=== PATIENT | female | born 1970 | race Caucasian/White ===

== ENCOUNTER → 2016-07-24 09:11 | Outpatient (CLI) | payer MEDICAID ==
[2011-09-28 12:51] VITALS: BMI 17.9
== END | disposition home or self-care (01) ==
LOC: D.RAD 09:11
DX: R13.10 Dysphagia, unspecified (principal)

== ENCOUNTER 2016-11-26 19:28 | Emergency (ER) | payer MEDICAID ==
[2011-09-28 12:51] VITALS: BMI 17.9
[2016-11-26 19:56] LABS: BASOPHILS 0.5 % (0-2); EOSINOPHILS 6.5 % (0-7); HEMATOCRIT 38.5 % (36.0-48.0); HEMOGLOBIN 13.3 g/dL (12-16); IMMATURE GRANULOCYTES 0.2 % (0-5); LYMPHOCYTES 37.9 % (15-50); MCH 30.5 pg (26.0-34.0); MCHC 34.5 g/dL (31.0-37.0); MCV 88.3 fL (80.0-100.0); MEAN PLATELET VOLUME 9.4 fL (7.4-10.4); MONOCYTES 8.2 % (2-11); NEUTROPHILS 46.7 % (40-80); RBC 4.36 10x6/uL (4.00-5.40); RDW 13.5 % (11.5-14.5); WBC 6.3 10x3/uL (4.8-10.8)
[2016-11-26 20:04] LABS: PLATELET COUNT 226 10x3/uL (130-400)
[2016-11-26 20:21] LABS: ALBUMIN 3.6 g/dL (3.4-5.0); ALKALINE PHOSPHATASE 73 U/L (46-116); ALT (SGPT) 20 U/L (10-68); BILIRUBIN - TOTAL 0.16 mg/dL (0.2-1.3); CALC OSMOLALITY 284 mosm/kg (275-300); CALCIUM 8.7 mg/dL (8.5-10.1); CHLORIDE - SERUM 110 mmol/L (98-107); CREATININE - SERUM 1.1 mg/dL (0.6-1.3); GLUCOSE 108 mg/dL (74-106); POTASSIUM - SERUM 3.6 mmol/L (3.5-5.1); PROTEIN - SERUM 6.9 g/dL (6.4-8.2); SODIUM 143 mmol/L (136-145); UREA NITROGEN 9 mg/dL (7-18); eGFR NON AFRICAN AMERICAN 56 mL/min (90-120)
[2016-11-26 20:32] LABS: CKMB 0.4 U/L (0.0-3.6); CREATINE KINASE 80 UL (21-215)
[2016-11-26 20:33] LABS: TROPONIN-I < 0.017 ng/mL (0.000-0.060)
== END 2016-11-26 20:50 | disposition left against medical advice (07) ==
LOC: D.ER 19:28
PROVIDERS: Emergency Medicine
DX: R07.9 Chest pain, unspecified (principal)

== ENCOUNTER → 2017-06-18 09:47 | Outpatient (CLI) | payer MEDICAID ==
[2011-09-28 12:51] VITALS: BMI 17.9
== END | disposition home or self-care (01) ==
LOC: D.MRI 06-07 14:00
DX: M25.562 Pain in left knee (principal)

== ENCOUNTER 2017-08-27 08:33 | Day surgery (SDC) | payer MEDICAID ==
[~2017-08-27] VITALS: Ht 162.6 cm; Wt 47.6 kg
--- NOTE | ~2017-08-27 | OP ---
PATIENT NAME: JAMA IRVING MEDICAL RECORD: [id number] :68 LOCATION:D.OPS ADMISSION DATE: SURGEON: YONIS DOMINGUEZ, KRISTIAN REYES DATE OF OPERATION: 08/27/2017 PREOPERATIVE DIAGNOSES: 1. Medial collateral ligament tear. 2. Large medial femoral condyle contusion. 3. Lipoma. POSTOPERATIVE DIAGNOSES: 1. Medial meniscus tear of the right knee. 2. Large medial femoral condyle contusion. 3. Lipoma. PROCEDURES: 1. Right knee arthroscopy with arthroscopic partial medial meniscectomy. 2. Fluoroscopically guided BioPlasty with stem cells and StimuBlast. 3. Stem cell harvest. SURGEON: Kristian Somers MD ANESTHESIA: General. INTRAOPERATIVE COMPLICATIONS: None. SUMMARY OF PATHOLOGIC FINDINGS: Given the fact that the patient needed StimuBlast, I felt like this was not the appropriate time to remove the lipoma with the prolonged tourniquet time for the StimuBlast. The MCL was no more at this point of the examination than a grade I-II strain and I did not feel like it needed to be fixed as it improved dramatically since the index examination. The MRI, however, did show a very large area of the medial femoral condylar contusion. The decision was made to treat this with StimuBlast. The meniscal tear was found incidentally at the time of arthroscopy. OPERATIVE SUMMARY IN DETAIL: After obtaining the appropriate preoperative orthopedic surgery consent as well as anesthetic consultation, evaluation and clearance, the patient was brought to the operating room and placed on the operating table in the supine position. After adequate general laryngeal mask airway was administered, tourniquet was placed about the proximal aspect of the left lower extremity. Left lower extremity was prepped and draped in routine sterile fashion. Leg was elevated and exsanguinated, and tourniquet was inflated to 350 mmHg. Please note the same time the leg was prepped and draped out, the anterior-superior iliac crest area was also prepped out. Diagnostic arthroscopy did reveal the patient to have 1 small area of condylar defect, punctate at best, 1 mm x 1 mm, noncommunicative. The patient also had a complex tear of the posterior horn of the medial meniscus. Combination of a fiber resector and a meniscotome was utilized to debride the meniscus back to stable meniscal elements with good residual posterior horn remaining. Having completed this, attention was then turned to the BioPlasty of the medial femoral condyle. A 60 cc of bone marrow aspirate was harvested quite easily from the anterior-superior iliac crest using the Arthrex Preet system. A very small incision was made. The trocar was tapped gently into the bone marrow and technique was used to harvest the 60 cc of bone marrow aspirate. This was then taken to the Preet machine for concentration. Small Steri-Strip was placed over OPERATIVE REPORT [id number] JAMA IRVING this very small stab incision. At this point, after concentration of the stem cells, approximately 1/2 of the 5 cc of the StimuBlast was mixed with approximately 2 cc of the aspirate. They totaled 3 cc in concentrate. This made a very good paste. Under direct fluoroscopic AP and lateral planes, the guide pin for the 7-mm decompression low profile reamer was placed and then the area in question was gently decompressed. Having completed this, the same guide pin was used to feed the cannula over. The delivery cannula over the guide pin was then removed. The stem cell BioPlasty mixture paste was then gently delivered into the medial aspect of the medial femoral condyle under direct fluoroscopic view. Having completed this, a small Steri-Strip was again placed over this stab incision. Lastly, the residual 1 cc of concentrated stem cells was mixed with approximately 5 cc of platelet poor plasma and delivered into the knee itself. Having completed this, arthroscopy portals were closed in a routine interrupted fashion using 4-0 Prolene. At this point, I made the decision to not proceed with the lipoma excision for various reasons; one of which was not to go long on the tourniquet and another was which to not cause more trauma to this knee that is in critical need of biological healing. Sterile dressings were applied. Tourniquet was deflated. The patient was awakened and taken to the recovery room in stable condition. All final needle and sponge counts were correct. TRANSINT:[id number] Voice Confirmation ID: [id number] DOCUMENT ID: [id number] KRISTIAN SOMERS MD at 8108 CC: [id number] DICTATION DATE: 08/27/17 1406 STENCIL INSPECTOR: 08/27/17 1824 [facility] 08/27/17 [facility] [address] [place] [address]
[2017-08-27] MEDS ORDERED: MELATONIN 3 MG1 TAB PO (09:21)
[2017-08-27 09:38] VITALS: BP 119/85; Ht 162.6 cm; Wt 47.6 kg
[2017-08-27 09:54] LABS: HEMATOCRIT 41.2 % (36.0-48.0); HEMOGLOBIN 14.3 g/dL (12-16); MCH 30.4 pg (26.0-34.0); MCHC 34.7 g/dL (31.0-37.0); MCV 87.5 fL (80.0-100.0); MEAN PLATELET VOLUME 9.7 fL (7.4-10.4); RBC 4.71 10x6/uL (4.00-5.40); RDW 12.7 % (11.5-14.5); WBC 7.8 10x3/uL (4.8-10.8)
[2017-08-27] MEDS ORDERED: HYDROCODONE-APA1 TAB PO (13:24)
== END 2017-08-27 15:30 | disposition home or self-care (01) ==
LOC: D.OPS 08:33 → D.PAN 13:40 → D.OPS 15:00 → D.PAN 15:00 → D.OPS 15:30
PROVIDERS: Anesthesiology
DX: S83.232A Complex tear of medial meniscus, current injury, left knee, initial encounter (principal); S70.12XA Contusion of left thigh, initial encounter; S83.412A Sprain of medial collateral ligament of left knee, initial encounter; X58.XXXA Exposure to other specified factors, initial encounter; D17.9 Benign lipomatous neoplasm, unspecified; Z01.812 Encounter for preprocedural laboratory examination
CPT/HCPCS: 29881; 0232T

== ENCOUNTER 2018-11-18 14:21 | Observation (INO) | payer MEDICAID ==
[2018-11-18] VITALS (9 sets, daily range): BP systolic 100–148; BP diastolic 55–88; BMI 23.2
[~2018-11-18 14:21] MED LIST: HYDROCODONE-APA1 TAB PO; MELATONIN 3 MG1 TAB PO
[2018-11-18] MEDS ORDERED: ZYPREXA20 MG PO ×2 (14:27→23:14)
[2018-11-18] MEDS ORDERED: CELEXA20 MG (14:27)
[2018-11-18] MEDS ORDERED: TRAZODONE HCL150 MG PO (14:27)
[2018-11-18] MEDS ORDERED: BUSPAR10 MG (14:28)
[2018-11-18] MEDS ORDERED: PROPRANOLOL HCL20 MG (14:28)
[2018-11-18] MEDS ORDERED: CARBATROL 200200 MG (14:29)
--- NOTE | 2018-11-18 14:35 | NUR ---
10/10 CHEST PAIN THAT RADIATES TO LEFT SIDE OF JAW, PT REPORTS. SPRAY NITRO X1 AND 324MG ASA BROOMCORN GRADER ED.
--- NOTE | 2018-11-18 14:40 | NUR ---
SL NITRO GIVEN AT 1435, BP AT 1440 103/55 PT STATES PAIN 9/10. EDP IN ROOM, IS AWARE AND ORDERED NOT TO GIVE ANOTHER NITRO.
[2018-11-18 15:00] LABS: BASOPHILS 0.1 % (0-2); EOSINOPHILS 7.2 % (0-7); HEMATOCRIT 36.7 % (36.0-48.0); HEMOGLOBIN 12.9 g/dL (12-16); IMMATURE GRANULOCYTES 0.1 % (0-5); LYMPHOCYTES 34.4 % (15-50); MCH 30.4 pg (26.0-34.0); MCHC 35.1 g/dL (31.0-37.0); MCV 86.6 fL (80.0-100.0); MEAN PLATELET VOLUME 9.4 fL (7.4-10.4); MONOCYTES 11.2 % (2-11); PLATELET COUNT 300 10x3/uL (130-400); RBC 4.24 10x6/uL (4.00-5.40); RDW 12.9 % (11.5-14.5); WBC 6.7 10x3/uL (4.8-10.8)
[2018-11-18 15:13] LABS: APTT 32.2 SECONDS (22.8-39.4); INR 1.13 (0.85-1.17)
[2018-11-18 15:15] LABS: D-DIMER-QUANTITATIVE 0.38 ug/mLFEU (0.20-0.54)
[2018-11-18 15:17] LABS: ALBUMIN 3.5 g/dL (3.4-5.0); ALKALINE PHOSPHATASE 102 U/L (46-116); ALT (SGPT) 28 U/L (10-68); BILIRUBIN - TOTAL 0.23 mg/dL (0.2-1.3); CALC OSMOLALITY 281 mosm/kg (275-300); CALCIUM 8.8 mg/dL (8.5-10.1); CHLORIDE - SERUM 107 mmol/L (98-107); CREATININE - SERUM 0.7 mg/dL (0.6-1.3); GLUCOSE 98 mg/dL (74-106); POTASSIUM - SERUM 3.5 mmol/L (3.5-5.1); PROTEIN - SERUM 6.7 g/dL (6.4-8.2); SODIUM 142 mmol/L (136-145); UREA NITROGEN 9 mg/dL (7-18); eGFR NON AFRICAN AMERICAN > 90 mL/min (90-120)
[2018-11-18 15:28] LABS: CREATINE KINASE 147 UL (21-215); MAGNESIUM - SERUM 2.3 mg/dL (1.8-2.4)
[2018-11-18 15:29] LABS: TROPONIN-I < 0.017 ng/mL (0.000-0.060)
--- NOTE | 2018-11-18 16:00 | NUR ---
PT C/O 02/04 PAIN TO CHEST AND RADIATING TO LEFT JAW. EDP NOTIFIED PT REQUESTING PAIN MEDICATION. PT DENIES FURTHER NEEDS AT THIS TIME. WILL CONTINUE TO MONITOR.
--- NOTE | 2018-11-18 17:11 | NUR ---
DR. ARANGO NOTIFIED AND REVIEWED PT'S BEHAVIOR AND ASSESSMENT RESULTS. PT IS A LOW RISK PER DR. ARANGO. DR. ARANGO STATED TO GIVE RESOURCES TO PT AT TIME OF DISCHARGE. NO FURTHER ORDERS AT THIS TIME. RESOURCES REVIEWED WITH PT AND SHE VERBALIZED UNDERSTANDING.
--- NOTE | 2018-11-18 17:52 | NUR ---
CALLED REPORT TO AARON JONES AT THIS TIME. ROOM IS DIRTY, UNABLE TO TRANSPORT PT TO NEW ROOM. PT IS AWARE THAT SHE IS BEING ADMITTED. PT DENIES FURTHER NEEDS AT THIS TIME. WILL CONTINUE TO MONITOR.
--- NOTE | 2018-11-18 18:30 | NUR ---
CALLED TO SEE IF ASSIGNED ROOM 2126 READY, ASSIGNED APPROX. 1 HOUR AGO AND MARKED DIRTY. REPORTED THAT ROOM REMAINS DIRTY AT THIS TIME.
--- NOTE | 2018-11-18 19:15 | NUR ---
HAND-OFF REPORT GIVEN TO AARON LOPEZ.
--- NOTE | 2018-11-18 19:25 | NUR ---
NURSE CALLED TO LET US KNOW PTS ROOM IS CLEAN, NURSE SPOKE WITH AARON LAINEZ TO ASK A COUPLE QUESTIONS ABOUT THE PT. PT TO BE TRANSPORTED TO ROOM BY TECH.
--- NOTE | 2018-11-18 19:46 | NUR ---
RECIEVED REPORT FROM OFFGOING NURSE. CALLED ER TO REQUEST PT BE SENT. ARRIVED TO FLOOR ON STRETCHER. TRANSFERED SELF TO BED. IV TO LEFT HAND SL..
[2018-11-18] MEDS ORDERED: BUSPAR10 MG PO (23:08)
[2018-11-18] MEDS ORDERED: PROPRANOLOL HCL20 MG PO (23:09)
[2018-11-18] MEDS ORDERED: CELEXA10 MG PO (23:10)
[2018-11-18] MEDS ORDERED: CARBATROL100 MG PO (23:11)
[2018-11-18] MEDS ORDERED: TRAZODONE HCL300 MG PO (23:13)
[2018-11-18] MEDS ORDERED: EPITOL200 MG PO (23:13)
[2018-11-19] VITALS: BP 110/64
[2018-11-19 04:00] VITALS: BP 90/59
[2018-11-19 05:45] LABS: BASOPHILS 0.2 % (0-2); EOSINOPHILS 5.5 % (0-7); HEMATOCRIT 34.4 % (36.0-48.0); HEMOGLOBIN 11.9 g/dL (12-16); IMMATURE GRANULOCYTES 0.2 % (0-5); MCH 30.3 pg (26.0-34.0); MCHC 34.6 g/dL (31.0-37.0); MCV 87.5 fL (80.0-100.0); MEAN PLATELET VOLUME 9.6 fL (7.4-10.4); MONOCYTES 11.4 % (2-11); NEUTROPHILS 55.7 % (40-80); RBC 3.93 10x6/uL (4.00-5.40); RDW 13.1 % (11.5-14.5); WBC 6.6 10x3/uL (4.8-10.8)
[2018-11-19 06:05] LABS: PLATELET COUNT 237 10x3/uL (130-400)
[2018-11-19 06:12] LABS: ALBUMIN 3.2 g/dL (3.4-5.0); ALKALINE PHOSPHATASE 112 U/L (46-116); CALC OSMOLALITY 281 mosm/kg (275-300); CALCIUM 9.1 mg/dL (8.5-10.1); CARBON DIOXIDE 29.5 mmol/L (21.0-32.0); CHLORIDE - SERUM 107 mmol/L (98-107); GLUCOSE 88 mg/dL (74-106); POTASSIUM - SERUM 3.2 mmol/L (3.5-5.1); SODIUM 143 mmol/L (136-145); TROPONIN-I < 0.017 ng/mL (0.000-0.060); UREA NITROGEN 8 mg/dL (7-18)
[2018-11-19 06:15] LABS: ALT (SGPT) 137 U/L (10-68); CREATININE - SERUM 0.9 mg/dL (0.6-1.3); eGFR NON AFRICAN AMERICAN 70 mL/min (90-120)
--- NOTE | 2018-11-19 07:00 | NUR ---
RECEIVED REPORT. ASSUMED CARE OF PATIENT. CALL LIGHT WITHIN REACH. RESTING IN BED WITH EYES OPEN. NO DISTRESS. PATIENT UNDERSTANDS SHE IS NPO FOR CARDIAC STRESS TEST TODAY.
--- NOTE | 2018-11-19 07:10 | NUR ---
SUMI FROM [place] ON UNIT FOR ADMINISTRATION OF RADIOTRACER DYE TO PATIENT.
--- NOTE | 2018-11-19 07:35 | NUR ---
PATIENT LEFT UNIT VIA WHEELCHAIR WITH NUCLEAR MED FOR PICTURES NEEDED FOR NUCLEAR STRESS TEST.
--- NOTE | 2018-11-19 08:10 | NUR ---
PATIENT RETUNRED TO UNIT VIA WHEELCHAIR. NO DISTRESS. CALL LIGHT WITHIN REACH.
--- NOTE | 2018-11-19 10:45 | NUR ---
COFFEE PROVIDED UPON REQUEST AFTER RETURNING FROM [facility] FROM STRESS TEST. STRESS TEST COMPLETE AND PATIENT CAN HAVE ORAL INTAKE. NO DISTRESS.
[2018-11-19 12:09] VITALS: BP 103/60
--- NOTE | 2018-11-19 12:12 | NUR ---
CALLED [facility] IN [place] PER PATIENT REQUEST AND ASKED TO SPEAK TO PATIENTS COUNSELOR, KAREN. KAREN IS OFF SITE AT THE MOMENT. GAVE PATIENTS DIRECT ROOM NUMBER AND ASKED THAT WHEN SHE HAS TIME IF SHE WILL RETURN CALL TO THE PATIENT.
--- NOTE | 2018-11-19 12:14 | HP ---
PATIENT: JAMA IRVING MEDICAL RECORD: [id number] ACCOUNT: [id number] LOCATION:[address] : [birth year] ADMISSION DATE: 11/18/18 PCP: FLAVIO DODSON HISTORY AND PHYSICAL EXAMINATION ADMITTING DIAGNOSES: 1. Chest pain compatible with angina. 2. Hypertension. HISTORY OF PRESENT ILLNESS: Mrs. Irving has been having episodes of chest pain and chest pressure. She has a cardiac history of a stress test 5 or 6 years ago, that was abnormal; however, cardiac catheterization revealed coronary artery disease, but no significant blockages that needed intervention. She has been having episodes of chest discomfort compatible with angina in an escalating fashion. She now presents to the Emergency Room. Her EKG is with no acute changes. PHYSICAL EXAMINATION: GENERAL APPEARANCE: Well-nourished, well-developed, appears stated age. Level of distress, comfortable. PSYCHIATRIC: Mental status, alert, normal affect. Orientation, oriented to time, place and person. EYES: Lids and conjunctiva, noninjected. No discharge, no pallor. ENT: Lips, teeth, gums, normal dentition. Oropharynx, no cyanosis, no pallor. NECK: Carotid arteries, bilateral normal upstroke, no bruits, no thrills. JUGULAR VEINS: No jugular venous pressure or distention. CERVICAL LYMPH NODES: Nontender, nonenlarged. THYROID: Not enlarged. Nontender. No nodules. LUNGS: Respiratory effort, unlabored. CHEST: Normal curvature. No thoracic deformity. No chest wall tenderness. Percussion, resonant. Auscultation, clear. No wheezes, no rales, no rhonchi. CARDIOVASCULAR: Precordial exam, nondisplaced. No heaves or pericardial thrills. Rate and rhythm, regular. Heart sounds, normal S1, normal S2. No S3, no gallop, no rub. Systolic murmur, not heard. Diastolic murmur, not heard. EXTREMITIES: No cyanosis, no edema. Peripheral pulses, full and equal in all extremities, except as noted. No bruits appreciated. ABDOMEN: Soft, nondistended. Normal aorta. No bruit. Nontender. No masses. Liver, nontender, no hepatomegaly. Spleen, nontender, no splenomegaly. MUSCULOSKELETAL: No joint tenderness. No joint swelling. No erythema. NEUROLOGICAL: Normal gait, normal strength, normal tone. SKIN: Warm and dry. OVERALL IMPRESSION: Chest discomfort compatible with angina, no acute changes on her EKG. We will risk stratify with stress testing Cardiolite imaging. Further care depends upon the findings of the stress test. TRANSINT:[id number] Voice Confirmation ID: [id number] DOCUMENT ID: [id number] HISTORY AND PHYSICAL [id number] JAMA IRVING JEFFREY MD at 1214 CC: [id number] DICTATION DATE: 11/18/18 1607 THORACIC SURGEON: 11/18/18 1629 ADM IN [facility] [address] [place] [id number]
--- NOTE | 2018-11-19 14:38 | NUR ---
18 GAUGE IV CATHETER REMOVED AT THIS TIME. NO BLEEDING FROM SITE. CATHETER TIP INTACT. 2X2 GAUZE APPLIED AND SECURED WITH TAPE. TOLERATED IV REMOVAL WELL. TELEMETRY REMOVED AND RETURNED TO QUALITY SYSTEMS MANAGER. DISCHARGE INSTRUCTIONS PROVIDED. PATIENT VERBALIZED UNDERSTANDING OF ALL INSTRUCTIONS. PATIENT GETTING DRESSED NOW AND CLAY CARMAN CALLING [facility] TO TRANSPORT BACK HOME TO [place].
--- NOTE | 2018-11-19 15:36 | NUR ---
PATIENT DRESSED AND SITTING ON BED WITH ATTENTION TOWARD TELEVISION. PATIENT WAITING FOR [facility] BUS TO PICK HER UP. [facility] WILL CALL UNIT WHEN THEY ARE DOWNSTAIRS TO MILL WORKER PATIENT.
--- NOTE | 2018-11-19 15:41 | NUR ---
SALES AND MARKETING ADMINISTRATOR OF [employer] BUS CAME UP AND RETRIEVED PATIENT FROM THE UNIT. PATIENT LEFT UNIT AMBULATORY WITH ALL PERSONAL BELONGINGS. NO DISTRESS UPON LEAVING UNIT AND THANKED THIS TAX SENIOR ASSOCIATE FOR ALL CARES RENDERED.
--- NOTE | 2018-11-19 16:54 | MORECARE ---
CASE MANAGEMENT DISCHARGE SUMMARY PATIENT: JAMA IRVING UNIT: [id number] ADM DATE: 11/18/18 AGE: 48 : [birth year] SEX: F ROOM/BED: D.2126 AUTHOR: ADEEL OJEDA PHYSICIAN: REFERRING PHYSICIAN: ROSY CAVAZOS MD DATE OF SERVICE: 11/19/18 Discharge Plan Patient Name: [facility]AMA IRVING [facility] [facility] 1970 Planned Disposition: Home Anticipated Discharge Date: 11/19/18 Discharge Date: 11/19/2018 Expected LOS: 1 Initial Reviewer: [email or web address] Initial Review Date: 11/19/2018 Generated: 11/19/18 5:54 pm Patient Name: JAMA IRVING Page [phone] at 8214 All edits/amendments must be made on the electronic document DICTATION DATE: 11/19/181653 SERVICE ORDER DISPATCHER CHIEF: DEREK 11/19/181653 RPT#: [id number] DC DATE:11/19/18 STATUS: DIS IN [facility] [address] [place] [address] END OF REPORT
--- NOTE | 2018-11-19 17:04 | MORECARE ---
CASE MANAGEMENT DISCHARGE SUMMARY PATIENT: JAMA IRVING UNIT: [id number] ADM DATE: 11/18/18 AGE: 48 : [birth year] SEX: F ROOM/BED: D.9796 AUTHOR: ADEEL OJEDA PHYSICIAN: REFERRING PHYSICIAN: ROSY CAVAZOS MD DATE OF SERVICE: 11/19/18 Discharge Plan Patient Name: JAMA IRVING [facility] [facility] 1970 Planned Disposition: Home Anticipated Discharge Date: 11/19/18 Discharge Date: 11/19/2018 Expected LOS: 1 Initial Reviewer: [email or web address] Initial Review Date: 11/19/2018 Generated: 11/19/18 6:03 pm DCPIA - Discharge Planning Initial Assessment Updated by [email or web address]: Conor Sutton on 11/19/18 5:03 pm * Is the patient Alert and Oriented? Yes * How many steps to enter\exit or inside your home? * PCP [facility] * Pharmacy [facility] * Preadmission Environment Home with Family * ADLs Independent * Equipment None * Other Equipment NO MEDICAL EQUIPMENT PROVIDER PREFERENCE * List name and contact numbers for known caregivers / representatives who currently or will assist patient after discharge: MATEO VALENZUELA, SON, * Verbal permission to speak to the caregivers and representatives has been obtained from the patient. N/A * Community resources currently utilized None * Please name any agencies selected above. NONE * Additional services required to return to the preadmission environment? No * Can the patient safely return to the preadmission environment? Yes * Has this patient been hospitalized within the prior 30 days at any hospital? Yes Last DP export: 11/19/18 3:54 p Patient Name: JAMA IRVING Page 42342 at 1704 All edits/amendments must be made on the electronic document DICTATION DATE: 11/19/181702 UX DESIGNER: DEREK 11/19/181702 RPT#: [id number] DC DATE:11/19/18 STATUS: DIS IN [address] [address] END OF REPORT
--- NOTE | 2018-11-19 17:11 | MORECARE ---
CASE MANAGEMENT DISCHARGE SUMMARY PATIENT: JAMA IRVING UNIT: [id number] ADM DATE: 11/18/18 AGE: 48 : [birth year] SEX: F ROOM/BED: D.7668 AUTHOR: ADEEL OJEDA PHYSICIAN: REFERRING PHYSICIAN: ROSY CAVAZOS MD DATE OF SERVICE: 11/19/18 Discharge Plan Patient Name: JAMA IRVING Facility: [facility]:[place] : 1970 Planned Disposition: Home Anticipated Discharge Date: 11/19/18 Discharge Date: 11/19/2018 Expected LOS: 1 Initial Reviewer: [email or web address] Initial Review Date: 11/19/2018 Generated: 11/19/18 6:11 pm Comments DCP- Discharge Planning Updated by [email or web address]: Conor Sutton on 11/19/18 4:[address] Patient Name: JAMA IRVING Admission Status: ER Accout number: [id number] Admission Date: 11-18-2018 : 1970 Admission Diagnosis: Attending: DORIS CAVAZOS Current LOS: 1 Anticipated DC Date: 11-19-2018 Planned Disposition: Home Primary Insurance: [facility] Discharge Planning Comments: CM MET WITH PT IN ROOM TO DISCUSS DISCHARGE PLANNING AND NEEDS. PT REPORTS LIVING AT HOME INDEPENDENTLY WITH HER ADULT SON. PT HAS NO MEDICAL EQUIPMENT AND NO OUTSIDE SERVICES ASSISTING IN THE HOME. CM DISCUSSED AVAILABILITY OF HOME HEALTH, REHAB SERVICES AND MEDICAL EQUIPMENT. PT DENIES DISCHARGE NEEDS OTHER THAN A RIDE HOME. CM ASSISTED PT IN CALLING SON, HE WAS AT WORK AND HAS NO FRIENDS OR FAMILY TO ORACLE SQL DEVELOPER PT. PT USES MEDICAID TRANSPORTATION. CM CALLED MEDICAID TRANSPORT, PT'S MEDICAID NUMBER PROVIDED BY PT: [id number]. CM ARRANGED TRANSPORT TO PT'S BROTHER'S HOME, [place], , WHO IS HOME AND PT CAN STAY THERE UNTIL HER SON GETS OFF WORK, PT CAN THEN WALK THE TWO BLOCKS HOME WHEN HER SON IS THERE TO OPEN THE DOOR. PT DISCHARGED WITH [facility] TO [address] [place], [place] [address]. Polygraph Operator: Conor Sutton DCPIA - Discharge Planning Initial Assessment Updated by [email or web address]: Conor Sutton on 11/19/18 5:03 pm * Is the patient Alert and Oriented? Yes * How many steps to enter\exit or inside your home? * PCP [facility] [place] * Pharmacy [facility] [place] * Preadmission Environment Home with Family * ADLs Independent * Equipment None * Other Equipment NO MEDICAL EQUIPMENT PROVIDER PREFERENCE * List name and contact numbers for known caregivers / representatives who currently or will assist patient after discharge: MATEO VALENZUELA, JACOB, * Verbal permission to speak to the caregivers and representatives has been obtained from the patient. N/A * Community resources currently utilized None * Please name any agencies selected above. NONE * Additional services required to return to the preadmission environment? No * Can the patient safely return to the preadmission environment? Yes * Has this patient been hospitalized within the prior 30 days at any hospital? Yes Last DP export: 11/19/18 4:03 p Patient Name: JAMA IRVING Page 24548 at 1711 All edits/amendments must be made on the electronic document DICTATION DATE: 11/19/181710 COASTAL/HARBOR DEFENSE OFFICER: DEREK 11/19/181710 RPT#: [id number] DC DATE:11/19/18 STATUS: DIS IN [facility] [address] [place] [address] END OF REPORT
--- NOTE | 2018-11-20 10:00 | EC ---
PATIENT:JAMA IRVING DATE OF SERVICE: 11/18/18 SEX: F MEDICAL RECORD: [id number] DATE OF : [birth year] LOCATION:D. D.212 AGE OF PATIENT: 48 ADMISSION DATE: 11/18/18 REFERRING PHYSICIAN: INTERPRETING PHYSICIAN: ROSY NIX MD ECHOCARDIOGRAM REPORT ECHO CHARGES 4 ECHO COMPLETE Date: 11/19/18 CLINICAL DIAGNOSIS: SOB ECHOCARDIOGRAPHIC MEASUREMENTS (adult normal given) AC root (d.<3.7cm) 3.5 cm LV Septum d (<1.2 cm> 1.1 cm Valve Excursion 1.9 cm LV Septum (systole) 1.3 cm Left Atria (s.<4.0cm> 3.5 cm LVPW d(<1.2cm) 1.4 cm RV (d.<2.3cm) 3.0 cm LVPW (sytole) 1.6 cm LV diastole(<5.6CM) 4.1 cm MV E-F(>70mm/sec) cm LV systole 3.3 cm LVOT Diameter 1.6 cm MV exc.(>10mm) 1.8 cm Est.ejection fraction (50-75%) % DOPPLER: LVIT cm/sec A 72.0 cm/sec E 88.0 cm/sec LA cm/sec RVSP 24 mmHg LVOT 96 cm/sec AOP1/2T m/s Asc. Ao 149 cm/sec RVOT 51 cm/sec RA cm/sec PA 103 cm/sec AV Gradient Peak 7.89 mmHg AV Mean 4.76 mmHg AV Area 1.6 cm MV Gradient Peak 3.88 mmHg MV Mean 1.00 mmHg MV Area cm COMMENTS: Target Setter: Lokesh BOLAND French Cord Binder: 1 Dr. Nix TAPE# PACS Pericardial Effusion N DATE OF SERVICE: 11/19/2018 FINDINGS: 1. Left ventricular chamber size is within normal limits. Left ventricular systolic function is normal. Overall ejection fraction is estimated at 55%. 2. Left atrium, right atrium, and right ventricular chamber sizes are within normal limit. 3. Valvular structures have normal structure and motion. 4. Doppler interrogation reveals mild tricuspid regurgitation. No other valvular insufficiency or stenosis. Pulmonary systolic pressure is estimated at ECHOCARDIOGRAM REPORT [id number] JAMA IRVING 24 mmHg. 5. No evidence of pericardial effusion or left ventricular thrombus. TRANSINT:[id number] Voice Confirmation ID: [id number] DOCUMENT ID: [id number] ROSY NIX MD at 1000 CC: [id number] DICTATION DATE: 11/19/18 1548 CLINICAL STAFF ANESTHESIOLOGIST: 11/19/182006 DIS IN 11/19/18 [place] [id number] [place] [id number]
--- NOTE | 2018-11-20 10:00 | DS ---
PATIENT:JAMA IRVING :68 MEDICAL RECORD: [id number] DISCHARGE SUMMARY ADMISSION DATE: 11/18/18 DISCHARGE DATE: 11/19/18 DISCHARGE DATE OF SERVICE: 11/19/2018 DISCHARGE DIAGNOSES: 1. Chest pain of unknown etiology. 2. Normal nuclear stress test. HOSPITAL COURSE: Mrs. Irving presents with chest pain; however, nuclear stress test was absolutely normal. Discharged home with no cardiac followup. Follow up with her primary care physician. TRANSINT:[id number] Voice Confirmation ID: [id number] DOCUMENT ID: [id number] ORSY CAVAZOS MD at 1000 CC: [id number] DICTATION DATE: 11/19/18 1215 PHOTOVOLTAIC PANEL INSTALLER: 11/20/18 0723 DIS IN 11/19/[address] [place] [address]
--- NOTE | 2018-11-20 18:07 | ST ---
PATIENT:JAMA IRVING MEDICAL RECORD: [id number] SEX: F LOCATION:D. D.212 ORDER #: ADMISSION DATE: 11/18/18 AGE OF PATIENT: 48 REFERRING PHYSICIAN: INTERPRETING PHYSICIAN: ROSY CAVAZOS MD DATE OF SERVICE: 11/19/2018 Nuclear Stress Test INDICATION: Chest pain of unknown etiology. She was exercised on standard Lexiscan protocol with 31 mCi of sestamibi injected at peak stress. Rest images were performed previously with 11 mCi. FINDINGS: Gated SPECT reveals preserved ejection fraction at 67% with good wall motion and thickening and brightening throughout all segments. SPECT imaging Cardiolite was used as myocardial fusion agent. There is homogeneous uptake throughout all segments at rest and stress with no evidence of inducible ischemia or previous infarction. OVERALL IMPRESSION: 1. This is a normal nuclear stress test with no evidence of inducible ischemia or previous infarction. 2. Gated SPECT reveals a preserved ejection fraction at 67%. In this patient with ongoing symptomatology, the current scan does not suggest the presence of hemodynamically significant coronary artery disease. Evaluate noncardiac etiology of chest pain. TRANSINT:[id number] Voice Confirmation ID: [id number] DOCUMENT ID: [id number] ROSY CAVAZOS MD at 1807 CC: [id number] DICTATION DATE: 11/19/18 1212 LANDSCAPE GARDENER: 11/20/18 0720 DIS IN 11/19/18 [id number] [place] [address]
== END 2018-11-19 15:49 | disposition home or self-care (01) ==
LOC: D.ER 14:21 → D.M2 17:35 → OBSVTIME 17:40 → D.M2 11-19 15:49
PROVIDERS: Family Medicine; ADMIT Internal Medicine Interventional Cardiology; ATTEND Internal Medicine Interventional Cardiology
DX: R07.9 Chest pain, unspecified (principal); I10 Essential (primary) hypertension

== ENCOUNTER 2019-07-17 08:33 | Observation (INO) | payer MEDICAID ==
[~2019-07-17] VITALS: Ht 162.6 cm; Wt 53.9 kg
[~2019-07-17 08:33] MED LIST changes: +BUSPAR10 MG; +BUSPAR10 MG PO; +CARBATROL 200200 MG; +CARBATROL100 MG PO; +CELEXA10 MG PO; +CELEXA20 MG; +EPITOL200 MG PO; +PROPRANOLOL HCL20 MG; +PROPRANOLOL HCL20 MG PO; +TRAZODONE HCL150 MG PO; +TRAZODONE HCL300 MG PO; +ZYPREXA20 MG PO
--- NOTE | 2019-07-17 08:53 | NUR ---
CHEST PAIN "HEAVINESS ON MY CHEST" 02/04 BP 134/83 (FIRST ED NITRO GIVEN) 0858 PT STATES CHEST HEAVINESS REMAINS A 02/04 (SECOND NITRO GIVEN IN ED) BP 113/64 0903 PT RATES CHEST PAIN AT 12/04 MARLENE 107/60 - THIRD ED NITRO NOT GIVEN DUE TO BP PT PLACED ON 2L O2 UPON ARRIVAL TO ED
--- NOTE | 2019-07-17 09:10 | NUR ---
PT RECEIVED ONE NITRO PRIOR TO ARRIVAL AT ED. PT STATES THAT SHE TOOK 325 MG OF ASA JUST PRIOR TO CALLING EMS FOR ASSISTANCE.
[2019-07-17 09:21] VITALS: BP 115/62
[2019-07-17 09:30] LABS: BASOPHILS 0.5 % (0-2); EOSINOPHILS 3.1 % (0-7); HEMOGLOBIN 12.6 g/dL (12-16); IMMATURE GRANULOCYTES 0.2 % (0-5); LYMPHOCYTES 26.8 % (15-50); MCH 30.2 pg (26.0-34.0); MCHC 34.1 g/dL (31.0-37.0); MCV 88.7 fL (80.0-100.0); MONOCYTES 7.2 % (2-11); NEUTROPHILS 62.2 % (40-80); RBC 4.17 10x6/uL (4.00-5.40); RDW 13.1 % (11.5-14.5); WBC 6.5 10x3/uL (4.8-10.8)
[2019-07-17 09:33] LABS: PLATELET COUNT 288 10x3/uL (130-400)
[2019-07-17 09:36] LABS: APTT 30.2 SECONDS (22.8-39.4); CALC OSMOLALITY 275 mosm/kg (275-300); CALCIUM 8.4 mg/dL (8.5-10.1); CARBON DIOXIDE 29.8 mmol/L (21.0-32.0); CHLORIDE - SERUM 105 mmol/L (98-107); CREATININE - SERUM 0.7 mg/dL (0.6-1.3); GLUCOSE 92 mg/dL (74-106); INR 0.98 (0.85-1.17); POTASSIUM - SERUM 3.5 mmol/L (3.5-5.1); PROTIME 12.9 SECONDS (11.6-15.0); SODIUM 140 mmol/L (136-145); UREA NITROGEN 5 mg/dL (7-18); eGFR NON AFRICAN AMERICAN > 90 mL/min (90-120)
[2019-07-17 09:55] LABS: ALBUMIN 3.3 g/dL (3.4-5.0); ALKALINE PHOSPHATASE 91 U/L (30-120); ALT (SGPT) 14 U/L (10-68); BILIRUBIN - TOTAL 0.21 mg/dL (0.2-1.3); CKMB 0.3 U/L (0.0-3.6); CREATINE KINASE 45 UL (21-215); MAGNESIUM - SERUM 2.1 mg/dL (1.8-2.4); PROTEIN - SERUM 6.5 g/dL (6.4-8.2); TROPONIN-I < 0.017 ng/mL (0.000-0.060)
[2019-07-17 11:07] VITALS: BP 143/86
[2019-07-17 11:10] LABS: APPEARANCE CLEAR (CLEAR); BILIRUBIN NEGATIVE (NEGATIVE); COLOR YELLOW (YELLOW); GLUCOSE NEGATIVE (NEGATIVE); KETONE NEGATIVE (NEGATIVE); NITRITE NEGATIVE (NEGATIVE); PROTEIN NEGATIVE (NEGATIVE); SPECIFIC GRAVITY 1.005 (1.005-1.020); UROBILINOGEN NORMAL (NORMAL)
--- NOTE | 2019-07-17 12:23 | NUR ---
PT RECEIVED FULL DOSE OF ROCEPHIN IN ER. THE PATIENT DID NOT EXPERIENCE ANY NEGATIVE SIDE EFFECTS DUE TO INFUSION OF RECEPHIN. DR HANSON AWARE OF PT STATUS AND COMPLETION OF ROCEPHIN.
--- NOTE | 2019-07-17 13:06 | NUR ---
PT ARRIVED VIA STRECHER. DENIES NEEDS OR PAIN AT THIS TIME. RR EVEN AND UNLABORED. SITTING UP EATING WITH NO DISTRESS. CALL LIGHT WITHINH REACH. BED IN LOWEST POSITION. UNABLE TO OBTAIN MED LIST AT THIS TIME. BEH[facility]IORAL [facility] [place] SENDING MED REC VIA FAX
[2019-07-17 13:43] VITALS: BP 108/74; Ht 162.6 cm; Wt 53.9 kg
[2019-07-17 15:03] LABS: CKMB 0.2 U/L (0.0-3.6); CREATINE KINASE 45 UL (21-215)
[2019-07-17 15:05] LABS: TROPONIN-I < 0.017 ng/mL (0.000-0.060)
[2019-07-17 16:00] VITALS: BP 114/62
--- NOTE | 2019-07-17 19:20 | NUR ---
REPORT RECEIVED, WILL CONTINUE POC. PATIENT IS AAOX4, LYING ON LT SIDE. NO S/S OF DISTRESS OBSERVED, RR EVEN AND UNLABORED ON ROOM AIR. PIV TO LT FA, PATENT, INFUSING NS@125ML/HR. PATIENT DENIES NEEDS AT THIS TIME. CL IN REACH, BED LOCKED AND LOWERED. WILL CTM.
--- NOTE | 2019-07-17 19:40 | NUR ---
MED REC NOT RECIEVED, MECHANICAL DESIGN ENGINEER PRODUCTS NURSE AWARE.
[2019-07-17 21:00] VITALS: BP 118/71
--- NOTE | 2019-07-17 21:02 | NUR ---
ADMINISTERED HS MEDS, PATIENT TOLERATED WELL.
[2019-07-18 01:18] VITALS: BP 135/72
[2019-07-18 03:13] LABS: UDS - AMPHET NEGATIVE QUAL (NEGATIVE); UDS - BARB NEGATIVE QUAL (NEGATIVE); UDS - BENZO NEGATIVE QUAL (NEGATIVE); UDS - COCAINE NEGATIVE QUAL (NEGATIVE); UDS - OPIATE NEGATIVE QUAL (NEGATIVE); UDS - PCP NEGATIVE QUAL (NEGATIVE); UDS - THC NEGATIVE QUAL (NEGATIVE)
[2019-07-18 03:36] LABS: BASOPHILS 0.5 % (0-2); EOSINOPHILS 2.8 % (0-7); HEMOGLOBIN 11.4 g/dL (12-16); IMMATURE GRANULOCYTES 0.2 % (0-5); LYMPHOCYTES 34.8 % (15-50); MCH 29.5 pg (26.0-34.0); MCHC 32.6 g/dL (31.0-37.0); MEAN PLATELET VOLUME 9.1 fL (7.4-10.4); MONOCYTES 8.4 % (2-11); NEUTROPHILS 53.3 % (40-80); PLATELET COUNT 245 10x3/uL (130-400); RBC 3.86 10x6/uL (4.00-5.40); RDW 13.3 % (11.5-14.5); WBC 5.7 10x3/uL (4.8-10.8)
[2019-07-18 03:44] LABS: MCV 90.7 fL (80.0-100.0)
--- NOTE | 2019-07-18 03:46 | NUR ---
I have reviewed this patient and I concur with the Shift Assessment completed by the Licensed Practical Nurse today this shift.
[2019-07-18 04:02] LABS: ALBUMIN 2.5 g/dL (3.4-5.0); ALKALINE PHOSPHATASE 75 U/L (30-120); ALT (SGPT) 11 U/L (10-68); BILIRUBIN - TOTAL 0.13 mg/dL (0.2-1.3); CALCIUM 8.1 mg/dL (8.5-10.1); CHLORIDE - SERUM 111 mmol/L (98-107); CKMB 0.1 U/L (0.0-3.6); CREATINE KINASE 38 UL (21-215); GLUCOSE 93 mg/dL (74-106); POTASSIUM - SERUM 3.9 mmol/L (3.5-5.1); PROTEIN - SERUM 5.4 g/dL (6.4-8.2); SODIUM 145 mmol/L (136-145)
[2019-07-18 04:10] LABS: CALC OSMOLALITY 287 mosm/kg (275-300); CREATININE - SERUM 0.9 mg/dL (0.6-1.3); TROPONIN-I < 0.017 ng/mL (0.000-0.060); UREA NITROGEN 11 mg/dL (7-18); eGFR NON AFRICAN AMERICAN 70 mL/min (90-120)
[2019-07-18 04:42] VITALS: BP 139/76
[2019-07-18] MEDS ORDERED: PROTONIX40 MG PO (07:31)
[2019-07-18] MEDS ORDERED: ZITHROMAX250 MG PO (07:31)
[2019-07-18 08:00] VITALS: BP 147/79
--- NOTE | 2019-07-18 12:32 | MORECARE ---
CASE MANAGEMENT DISCHARGE SUMMARY PATIENT: JAMA IRVING UNIT: [id number] ADM DATE: 07/17/19 AGE: 49 : [birth year] SEX: F ROOM/BED: D.[facility] AUTHOR: ADEEL OJEDA PHYSICIAN: REFERRING PHYSICIAN: JESSICA CAMACHO MD DATE OF SERVICE: 07/18/19 Discharge Plan Patient Name: [facility] IRVING [facility] [facility] 1970 Planned Disposition: Home Anticipated Discharge Date: 07/18/19 Discharge Date: Expected LOS: 1 Initial Reviewer: [email or web address] Initial Review Date: 07/18/2019 Generated: 07/18/19 1:32 pm DCPIA - Discharge Planning Initial Assessment Updated by [email or web address]: Conor Sutton on 07/18/19 12:29 pm * Is the patient Alert and Oriented? Yes * How many steps to enter\exit or inside your home? NONE * P[facility] * [facility] IN [place] * Preadmission Environment Home Alone * ADLs Independent * Equipment None * Other Equipment NO MEDICAL EQUIPMENT PROVIDER PREFERENCE * List name and contact numbers for known caregivers / representatives who currently or will assist patient after discharge: ROSALINO KRAMERER, * Verbal permission to speak to the caregivers and representatives has been obtained from the patient. N/A * Community resources currently utilized None * Please name any agencies selected above. USES MEDICAID TRANSPORTATION SERVICES * Additional services required to return to the preadmission environment? No * Can the patient safely return to the preadmission environment? Yes * Has this patient been hospitalized within the prior 30 days at any hospital? No Patient Name: JAMA IRVING Page [id number] at 1232 All edits/amendments must be made on the electronic document DICTATION DATE: 07/18/19 1232 DIRECTOR PUBLIC SERVICE: DEREK 07/18/19 1232 RPT#: [id number] DC DATE: STATUS: ADM IN [facility] [address] [place] [address] END OF REPORT
--- NOTE | 2019-07-18 12:39 | MORECARE ---
CASE MANAGEMENT DISCHARGE SUMMARY PATIENT: JAMA IRVING UNIT: [id number] ADM DATE: 07/17/19 AGE: 49 : [birth year] SEX: F ROOM/BED: D.5348 AUTHOR: ADEEL OJEDA PHYSICIAN: REFERRING PHYSICIAN: JESSICA CAMACHO MD DATE OF SERVICE: 07/18/19 Discharge Plan Patient Name: JAMA IRVING Facility: [facility]:[place] : 1970 Planned Disposition: Home Anticipated Discharge Date: 07/18/19 Discharge Date: Expected LOS: 1 Initial Reviewer: [email or web address] Initial Review Date: 07/18/2019 Generated: 07/18/19 1:39 pm Comments DCP- Discharge Planning Updated by [email or web address]: Conor Sutton on 07/18/19 11:[address] Patient Name: JAMA IRVING Encounter No: [id number] : 1970 Primary [facility] Anticipated DC Date: 07-18-2019 Planned Disposition: Home DCP follow-up note: BEDSIDE NURSE ADVISED PT NEEDS ASSISTANCE WITH MEDICAID TRANSPORTATION FOR DISCHARGE HOME TODAY. CM MET WITH PT IN ROOM TO DISCUSS DISCHARGE PLANNING AND NEEDS. PT REPORTS LIVING AT HOME INDEPENDENTLY AND ALONE. PT HAS NO MEDICAL EQUIPMENT AND NO OUTSIDE SERVICES ASSISTING IN THE HOME. CM DISCUSSED AVAILABILITY OF HOME HEALTH, REHAB SERVICES AND MEDICAL EQUIPMENT. PT DENIES DISCHARGE NEEDS, REPORTS NEEDING ASSISTANCE WITH MEDICAID TRANSPORATATION TO GET HOME TODAY. CM CALLED MEDICAID TRANSPORATATION, , SPOKE TO MAXIMO, PROVIDED MEDICAID NUMBER [id number] AND ARRANGED SHOP TAILOR SOMETIME TODAY. CONFIRMATION # [id number]. MEDICAID TRANSPORT TO CALL N[facility] WHEN DOWNSTAIRS TO RECEIVE PT FOR TRANPSORTATION HOME. Conor Sutton, CASE MANAGEMENT DCPIA - Discharge Planning Initial Assessment Updated by [email or web address]: Conor Sutton on 07/18/19 12:29 pm * Is the patient Alert and Oriented? Yes * How many steps to enter\exit or inside your home? NONE * PCP [facility] * [facility] IN [place] * Preadmission Environment Home Alone * ADLs Independent * Equipment None * Other Equipment NO MEDICAL EQUIPMENT PROVIDER PREFERENCE * List name and contact numbers for known caregivers / representatives who currently or will assist patient after discharge: ROSALINO KRAMERER, * Verbal permission to speak to the caregivers and representatives has been obtained from the patient. N/A * Community resources currently utilized None * Please name any agencies selected above. USES MEDICAID TRANSPORTATION SERVICES * Additional services required to return to the preadmission environment? No * Can the patient safely return to the preadmission environment? Yes * Has this patient been hospitalized within the prior 30 days at any hospital? No Last DP export: 07/18/19 11:32 a Patient Name: JAMA IRVING Page [id number] at 1239 All edits/amendments must be made on the electronic document DICTATION DATE: 07/18/19 1239 MOTION DESIGNER: DEREK 07/18/19 1239 RPT#: [id number] DC DATE: STATUS: ADM IN [facility] [address] [place] [address] END OF REPORT
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
== END 2019-07-18 15:23 | disposition home or self-care (01) ==
LOC: D.ER 08:33 → D.M2 11:02 → OBSVTIME 11:03 → D.SDCHOLD 11:17 → D.M2 11:17
PROVIDERS: Family Medicine; ADMIT Family Medicine; ATTEND Family Medicine
DX: R07.9 Chest pain, unspecified (principal); I69.319 Unspecified symptoms and signs involving cognitive functions following cerebral infarction; F32.9 Major depressive disorder, single episode, unspecified; F17.200 Nicotine dependence, unspecified, uncomplicated; G43.909 Migraine, unspecified, not intractable, without status migrainosus

== ENCOUNTER 2019-07-25 15:06 | Emergency (ER) | payer MEDICAID ==
[~2019-07-25] VITALS: Ht 162.6 cm; Wt 54.5 kg
[~2019-07-25 15:06] MED LIST changes: +PROTONIX40 MG PO; -TRAZODONE HCL300 MG PO; +ZITHROMAX250 MG PO
[2019-07-25 15:08] VITALS: Ht 162.6 cm; Wt 54.5 kg
[2019-07-25] MEDS ORDERED: RISPERDAL2 MG PO (15:25)
[2019-07-25] MEDS ORDERED: CYMBALTA30 MG PO (15:26)
[2019-07-25] MEDS ORDERED: ZANAFLEX4 MG PO (15:27)
[2019-07-25 15:37] LABS: BASOPHILS 0.8 % (0-2); EOSINOPHILS 4.7 % (0-7); HEMATOCRIT 36.8 % (36.0-48.0); HEMOGLOBIN 12.5 g/dL (12-16); IMMATURE GRANULOCYTES 0.2 % (0-5); LYMPHOCYTES 34.6 % (15-50); MCV 88.5 fL (80.0-100.0); MEAN PLATELET VOLUME 9.4 fL (7.4-10.4); NEUTROPHILS 47.7 % (40-80); PLATELET COUNT 253 10x3/uL (130-400); RBC 4.16 10x6/uL (4.00-5.40); RDW 12.8 % (11.5-14.5); WBC 6.3 10x3/uL (4.8-10.8)
[2019-07-25 15:55] LABS: CALC OSMOLALITY 279 mosm/kg (275-300); CALCIUM 8.6 mg/dL (8.5-10.1); CARBON DIOXIDE 26.4 mmol/L (21.0-32.0); CHLORIDE - SERUM 104 mmol/L (98-107); CREATININE - SERUM 0.7 mg/dL (0.6-1.3); GLUCOSE 126 mg/dL (74-106); POTASSIUM - SERUM 3.5 mmol/L (3.5-5.1); SODIUM 140 mmol/L (136-145); UREA NITROGEN 10 mg/dL (7-18); eGFR NON AFRICAN AMERICAN > 90 mL/min (90-120)
[2019-07-25 16:03] LABS: APTT 32.5 SECONDS (22.8-39.4); INR 0.99 (0.85-1.17); PROTIME 13.1 SECONDS (11.6-15.0)
[2019-07-25 16:10] LABS: ALBUMIN 3.2 g/dL (3.4-5.0); ALKALINE PHOSPHATASE 93 U/L (30-120); ALT (SGPT) 21 U/L (10-68); BILIRUBIN - TOTAL 0.26 mg/dL (0.2-1.3); CKMB 0.5 U/L (0.0-3.6); CREATINE KINASE 93 UL (21-215); MAGNESIUM - SERUM 2.2 mg/dL (1.8-2.4); PROTEIN - SERUM 6.4 g/dL (6.4-8.2); TROPONIN-I < 0.017 ng/mL (0.000-0.060)
[2019-07-25 18:07] VITALS: BP 120/67
== END 2019-07-25 18:09 | disposition home or self-care (01) ==
LOC: D.ER 15:06
PROVIDERS: Emergency Medicine
DX: E86.0 Dehydration (principal); R07.89 Other chest pain; B34.9 Viral infection, unspecified; Z86.73 Personal history of transient ischemic attack (TIA), and cerebral infarction without residual deficits

== ENCOUNTER → 2020-02-27 07:54 | Outpatient (CLI) | payer MEDICAID ==
[2019-07-25 15:08] VITALS: BMI 20.6
[~2020-02-27 07:54] MED LIST changes: +CYMBALTA30 MG PO; +RISPERDAL2 MG PO; +ZANAFLEX4 MG PO
== END | disposition home or self-care (01) ==
LOC: D.MRI 07:54
PROVIDERS: ATTEND Orthopaedic Surgery
DX: S83.231A Complex tear of medial meniscus, current injury, right knee, initial encounter (principal)